=== PATIENT | female | born 1970 | race Two or more races ===

== ENCOUNTER 2023-08-19 11:54 | Emergency (ER) | payer MEDICAID, OTHER ==
[~2023-08-19] VITALS: Ht 167.6 cm; Wt 84.6 kg
[2023-08-19] MEDS ORDERED: CEPH500T PO (14:57)
[2023-08-19] MEDS ORDERED: IBUP1TAB5 PO (14:57)
[2023-08-19 15:00] VITALS: BP 126/86; TEMP 98.7
[2023-08-19 15:06] VITALS: PULSE 76; RESP 18; O2SAT 100
== END 2023-08-19 15:08 | disposition home or self-care (01) ==
LOC: ER 11:54
DX: N64.4 Mastodynia (principal); Z79.1 Long term (current) use of non-steroidal anti-inflammatories (NSAID); Z79.899 Other long term (current) drug therapy

== ENCOUNTER 2024-03-16 12:02 | Emergency (ER) | payer MEDICAID, OTHER ==
[~2024-03-16] VITALS: Ht 167.6 cm; Wt 84.4 kg
[~2024-03-16 12:02] MED LIST: CEPH500T PO; IBUP1TAB5 PO
[2024-03-16 13:27] VITALS: BP 109/58; PULSE 79; RESP 16; TEMP 98.7; O2SAT 96
== END 2024-03-16 14:51 | disposition home or self-care (01) ==
LOC: ER 12:02
DX: Z02.89 Encounter for other administrative examinations (principal); Z86.16 Personal history of COVID-19; Z79.899 Other long term (current) drug therapy